=== PATIENT | female | born 2000 | race African-American/Black ===

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

== ENCOUNTER 2024-02-05 09:59 | Emergency (ER) | payer SELFPAY ==
[2024-02-05 10:14] VITALS: RESP 16
--- NOTE | 2024-02-05 10:14 | ED ---
Female Urogenital HPI - General Stated complaint: 18wks preg,abd pain Time Seen by Provider: 02/05/24 10:13 Source: patient, RN notes reviewed - History of Present Illness Initial comments: This is a 23-year-old female presenting to the emergency department chief complaint of lower abdominal pain and cramping in addition to vaginal bleeding that is been occurring over the past few days. Patient is approximately 18 weeks . Patient had outpatient ultrasound few weeks ago which revealed a intrauterine . She has been unable to establish and follow-up care with a OB for this . Patient states that vaginal bleeding is more spotting. Denies headaches, blurry or double vision, shortness of breath or difficulty breathing. Denies dysuria or increased urinary frequency or urgency. - Related Data Home Medications Medication Instructions Recorded Confirmed Dextroamphetamine/Amphetamine 20 mg PO DAILY 12/13/13 08/24/14 [Adderall] Previous Rx's Medication Instructions Recorded Cephalexin [Keflex] 500 mg PO Q12HR 10 Days #20 cap 12/30/19 Doxycycline [Vibramycin] 100 mg PO BID 14 Days #28 capsule 12/30/19 metroNIDAZOLE [Flagyl] 500 mg PO BID #28 tab 12/30/19 Nitrofurantoin Monohyd/M-Cryst 100 mg PO Q12HR #14 cap 02/05/24 [Macrobid] Allergies Allergy/AdvReac Type Severity Reaction Status Date / Time No Known Allergies Allergy Verified 02/05/24 10:14 Review of Systems ROS Statement: Those systems with pertinent positive or pertinent negative responses have been documented in the HPI. ROS Other: All systems not noted in ROS Statement are negative. Past Medical History Past Medical History: Asthma Additional Past Medical History / Comment(s): ADD, History of Any Multi-Drug Resistant Organisms: None Reported Past Surgical History: No Surgical Hx Reported Past Psychological History: ADD/ADHD Smoking Status: Never smoker Past Alcohol Use History: None Reported Past Drug Use History: None Reported General Exam General appearance: alert, in no apparent distress Eye exam: Present: normal appearance, PERRL, EOMI. Absent: scleral icterus, conjunctival injection, periorbital swelling Neck exam: Present: normal inspection. Absent: tenderness, meningismus, lymphadenopathy Respiratory exam: Present: normal lung sounds bilaterally. Absent: respiratory distress, wheezes, rales, rhonchi, stridor Cardiovascular Exam: Present: regular rate, normal rhythm, normal heart sounds. Absent: systolic murmur, diastolic murmur, rubs, gallop, clicks GI/Abdominal exam: Present: soft, tenderness (suprapubic), normal bowel sounds. Absent: distended, guarding, rebound, rigid Extremities exam: Present: normal inspection, full ROM, normal capillary refill. Absent: tenderness, pedal edema, joint swelling, calf tenderness Back exam: Present: normal inspection Skin exam: Present: warm, dry, intact, normal color. Absent: rash Course Vital Signs 02/05/24 02/05/24 10:12 13:12 Temperature 97.8 F 97.9 F Pulse Rate 94 90 Respiratory 16 16 Rate Blood Pressure 130/78 128/78 O2 Sat by Pulse 97 97 Oximetry Medical Decision Making - Medical Decision Making Was pt. sent in by a medical professional or institution (, PA, MENTAL TELEPATHIST, urgent care, hospital, or half-way...) When possible be specific @ -No Did you speak to anyone other than the patient for history (EMS, parent, family, police, friend...)? What history was obtained from this source @ -No Did you review nursing and triage notes (agree or disagree)? Why? @ -I reviewed and agree with nursing and triage notes Were old charts reviewed (outside hosp., previous admission, EMS record, old EKG, old radiological studies, urgent care reports/EKG's, half-way records)? Report findings @ -No old charts were reviewed Differential Diagnosis (chest pain, altered mental status, abdominal pain women, abdominal pain men, vaginal bleeding, weakness, fever, dyspnea, syncope, hea dache, dizziness, GI bleed, back pain, seizure, CVA, palpatations, mental health, musculoskeletal)? @ -Differential Vaginal Bleeding: Spontaneous , threatened , molar , ectopic , bloody show, incompetent cervix, abruptioplacenta, placenta previa, uterine rupture, dysfunctional uterine bleeding, hemorrhage, uterine fibroids, this is not meant to be an all-inclusive list. EKG interpreted by me (3pts min.). @ -none X-rays interpreted by me (1pt min.). @ -None done CT interpreted by me (1pt min.). @ -None done U/S interpreted by me (1pt. min.). @ -Ultrasound of the fetus reveals a single intrauterine gestation estimated 18 weeks 3 days with cardiac activity 145 What testing was considered but not performed or refused? (CT, X-rays, U/S, labs)? Why? @ -None What meds were considered but not given or refused? Why? @ -None Did you discuss the management of the patient with other professionals (professionals i.e. DrJay, PA, MENTAL TELEPATHIST, lab, RT, psych nurse, medical social worker, clinical biochemist, teacher, chief digital media officer, case investigator)? Give summary @ -No Was smoking cessation discussed for >3mins.? @ -No Was critical care preformed (if so, how long)? @ -No Were there social determinants of health that impacted care today? How? (Homelessness, low income, unemployed, alcoholism, drug addiction, transportation, low edu. Level, literacy, decrease access to med. care, half-way, rehab)? @ -No Was there de-escalation of care discussed even if they declined (Discuss DNR or withdrawal of care, Hospice)? DNR status @ -No What co-morbidities impacted this encounter? (DM, HTN, Smoking, COPD, CAD, Cancer, CVA, ARF, Chemo, Hep., AIDS, mental health diagnosis, sleep apnea, morbid obesity)? @ -None Was patient admitted / discharged? Hospital course, mention meds given and route, prescriptions, significant lab abnormalities, going to OR and other pertinent info. @ -Discharge. 23-year-old female with abdominal cramping during . On my evaluation the patient she is resting company no signs acute distress. Her vitals are stable. Showed to have mild suprapubic tenderness to palpation. Patient was offered pain medication however she is declined at this time. Unremarkable for intrauterine gestation 18 weeks 3 days cardiac to be 145 with a decreased ratio to her abdomen. Analysis remarkable for infection with large leukocyte esterase, 41 white blood cells and epithelial cells. Patient's hCG level 15,000. Blood type O+. Patient is informed of results from today's workup. She is provided prescription for Macrobid to take for during and instructed to follow-up with blacksmith helper/OB for further evaluation. Discus sed with Dr. Jeffrey Undiagnosed new problem with uncertain prognosis? @ -No Drug Therapy requiring intensive monitoring for toxicity (Heparin, Nitro, Insulin, Cardizem)? @ -No Were any procedures done? @ -No Diagnosis/symptom? @ -Abdominal pain during , vaginal bleeding during Acute, or Chronic, or Acute on Chronic? @ -Acute Uncomplicated (without systemic symptoms) or Complicated (systemic symptoms)? @ -Uncomplicated Side effects of treatment? @ -No Exacerbation, Progression, or Severe Exacerbation? @ -No Poses a threat to life or bodily function? How? (Chest pain, USA, ND, pneumonia, PE, COPD, DKA, ARF, appy, cholecystitis, CVA, Diverticulitis, Homicidal, Cee icidal, threat to staff... and all critical care pts) @ -No - Lab Data Result diagrams: 02/05/24 11:51 02/05/24 11:51 Lab Results 02/05/24 02/05/24 02/05/24 Range/Units 10:32 11:51 11:51 WBC 9.4 (3.8-10.6) k/uL RBC 4.33 (3.80-5.40) m/uL Hgb 11.4 (11.4-16.0) gm/dL Hct 35.4 (34.0-46.0) % MCV 81.7 (80.0-100.0) fL MCH 26.4 (25.0-35.0) pg MCHC 32.3 (31.0-37.0) g/dL RDW 16.1 H (11.5-15.5) % Plt Count 237 (150-450) k/uL MPV 8.1 Neutrophils % 80 % Lymphocytes % 14 % Monocytes % 4 % Eosinophils % 1 % Basophils % 0 % Neutrophils # 7.5 (1.3-7.7) k/uL Lymphocytes # 1.3 (1.0-4.8) k/uL Monocytes # 0.4 (0-1.0) k/uL Eosinophils # 0.1 (0-0.7) k/uL Basophils # 0.0 (0-0.2) k/uL Anisocytosis Slight Sodium 133 L (137-145) mmol/L Potassium 3.7 (3.5-5.1) mmol/L Chloride 107 (98-107) mmol/L Carbon Dioxide 20 L (22-30) mmol/L Anion Gap 6 mmol/L BUN 6 L (7-17) mg/dL Creatinine 0.39 L (0.52-1.04) mg/dL Est GFR (CKD-EPI)AfAm >90 (>60 ml/min/1.73 sqM) Est GFR (CKD-EPI)NonAf >90 (>60 ml/min/1.73 sqM) Glucose 95 (74-99) mg/dL Calcium 8.8 (8.4-10.2) mg/dL Magnesium 1.7 (1.6-2.3) mg/dL Total Bilirubin 0.3 (0.2-1.3) mg/dL AST 15 (14-36) U/L ALT 8 (4-34) U/L Alkaline Phosphatase 72 (38-126) U/L Total Protein 6.6 (6.3-8.2) g/dL Albumin 3.5 (3.5-5.0) g/dL HCG, Quant 13908.3 mIU/mL Urine Color Light Yellow Urine Appearance Cloudy H (Clear) Urine pH 7.0 (5.0-8.0) Ur Specific [place] 1.026 (1.001-1.035) Urine Protein Trace H (Negative) Urine Glucose (UA) Negative (Negative) Urine Ketones Negative (Negative) Urine Blood Negative (Negative) Urine Nitrite Negative (Negative) Urine Bilirubin Negative (Negative) Urine Urobilinogen <2.0 (<2.0) mg/dL Ur Leukocyte Esterase Large H (Negative) Urine RBC 2 (0-5) /hpf Urine WBC 41 H (0-5) /hpf Ur Squamous Epith Cells 15 H (0-4) /hpf Urine Mucus Many H (None) /hpf Blood Type Blood Type Recheck Bld Type Recheck Status 02/05/24 Range/Units 12:25 WBC (3.8-10.6) k/uL RBC (3.80-5.40) m/uL Hgb (11.4-16.0) gm/dL Hct (34.0-46.0) % MCV (80.0-100.0) fL MCH (25.0-35.0) pg MCHC (31.0-37.0) g/dL RDW (11.5-15.5) % Plt Count (150-450) k/uL MPV Neutrophils % % Lymphocytes % % Monocytes % % Eosinophils % % Basophils % % Neutrophils # (1.3-7.7) k/uL Lymphocytes # (1.0-4.8) k/uL Monocytes # (0-1.0) k/uL Eosinophils # (0-0.7) k/uL Basophils # (0-0.2) k/uL Anisocytosis Sodium (137-145) mmol/L Potassium (3.5-5.1) mmol/L Chloride (98-107) mmol/L Carbon Dioxide (22-30) mmol/L Anion Gap mmol/L BUN (7-17) mg/dL Creatinine (0.52-1.04) mg/dL Est GFR (CKD-EPI)AfAm (>60 ml/min/1.73 sqM) Est GFR (CKD-EPI)NonAf (>60 ml/min/1.73 sqM) Glucose (74-99) mg/dL Calcium (8.4-10.2) mg/dL Magnesium (1.6-2.3) mg/dL Total Bilirubin (0.2-1.3) mg/dL AST (14-36) U/L ALT (4-34) U/L Alkaline Phosphatase (38-126) U/L Total Protein (6.3-8.2) g/dL Albumin (3.5-5.0) g/dL HCG, Quant mIU/mL Urine Color Urine Appearance (Clear) Urine pH (5.0-8.0) Ur Specific [place] (1.001-1.035) Urine Protein (Negative) Urine Glucose (UA) (Negative) Urine Ketones (Negative) Urine Blood (Negative) Urine Nitrite (Negative) Urine Bilirubin (Negative) Urine Urobilinogen (<2.0) mg/dL Ur Leukocyte Esterase (Negative) Urine RBC (0-5) /hpf Urine WBC (0-5) /hpf Ur Squamous Epith Cells (0-4) /hpf Urine Mucus (None) /hpf Blood Type O Positive Blood Type Recheck No Previous Record Bld Type Recheck Status ABR ONLY Disposition Clinical Impression: Abdominal pain during , UTI (urinary tract infection) Disposition: HOME SELF-CARE Condition: Stable Instructions (If sedation given, give patient instructions): Abdominal Pain in (ED), Urinary Tract Infection in (ED) Additional Instructions: Please return to the Emergency Department if symptoms worsen or any other concerns. Complete full course of Macrobid as prescribed for urinary tract i nfection. Recommend that you follow-up with OB as scheduled. Prescriptions: Nitrofurantoin Monohyd/M-Cryst [Macrobid] 100 mg PO Q12HR #14 cap Is patient prescribed a controlled substance at d/c from ED?: No Referrals: None,Stated [Primary Care Provider] - 1-2 days Time of Disposition: 13:03
[2024-02-05 11:24] LABS: Appearance,Urine Cloudy (Clear); Bilirubin,Urine Negative (Negative); Blood,Urine Negative (Negative); Color,Urine Light Yellow; Glucose,Urine (UA) Negative (Negative); Ketones,Urine Negative (Negative); Leukocyte Esterase,Urine Large (Negative); Mucus,Urine Many /hpf; Nitrite,Urine Negative (Negative); Protein,Urine Trace (Negative); RBC,Urine 2 /hpf (0-5); Specific Gravity,Urine 1.026 (1.001-1.035); Squamous Epithelial Cell,Urine 15 /hpf (0-4); Urobilinogen,Urine <2.0 mg/dL (<2.0); WBC,Urine 41 /hpf (0-5)
--- NOTE | 2024-02-05 11:32 | US ---
EXAMINATION TYPE: US OB >= 14 wk fetus DATE OF EXAM: 02/05/2024 COMPARISON: None CLINICAL INDICATION: Female, 23 years old with history of ab pain, bleeding, 17 weeks; TECHNIQUE: FINDINGS: GESTATIONAL AGE / DATING Physician Established: Not yet established Dates by LMP: (17 weeks/4 days) EDC: 07/11/2024 Dates by First Scan: No previous Dates by Current Scan: (18 weeks/3 days) EDC: 07/05/2024 SURVEY IUP: Single PLACENTA: Posterior PREVIA: No Previa TONO: 11.3 cm Normal CERVICAL LENGTH (transabdominal: norm > 3.0cm): 3.6 cm BIOMETRY PRESENTATION: Vertex LIE: Longitudinal BPD: 4.0 cm 18 weeks / 2 days HC: 15.1 cm 18 weeks / 1 days AC: 14.1 cm 19 weeks / 3 days FL: 2.8 cm 18 weeks / 4 days ESTIMATED WEIGHT IN GRAMS: 264 grams ESTIMATED WEIGHT IN LBS/OZ: 0 lbs. 9 oz. WEIGHT PERCENTAGE BASED ON ESTABLISHED DATES: >97% HC/AC: 1.07 Abnormal FL/AC: 19.92 HEART RATE: 145 bpm RHYTHM: Normal IMPRESSION: 1. Single intrauterine gestation estimated at 18 weeks 3 days gestation based on current ultrasound m easurements. Cardiac activity measures 145 bpm. 2. Minimal diminished ratio for head circumference to abdominal circumference. [facility], , 02/05/2024 11:29 AM
[2024-02-05 12:14] LABS: Anisocytosis Slight; Basophils % (A) 0 %; Eosinophils # (A) 0.1 k/uL (0-0.7); Eosinophils % (A) 1 %; HCT 35.4 % (34.0-46.0); HGB 11.4 gm/dL (11.4-16.0); Lymphocytes # (A) 1.3 k/uL (1.0-4.8); Lymphocytes % (A) 14 %; MCH 26.4 pg (25.0-35.0); MCHC 32.3 g/dL (31.0-37.0); MCV 81.7 fL (80.0-100.0); Mean Platelet Volume 8.1; Monocytes # (A) 0.4 k/uL (0-1.0); Monocytes % (A) 4 %; Neutrophils # (A) 7.5 k/uL (1.3-7.7); Neutrophils % (A) 80 %; Platelet Count 237 k/uL (150-450); RBC 4.33 m/uL (3.80-5.40); RDW 16.1 % (11.5-15.5); WBC 9.4 k/uL (3.8-10.6)
[2024-02-05 12:29] LABS: ALT 8 U/L (4-34); AST 15 U/L (14-36); African American GFR (CKD) >90 (>60 ml/min/1.73 sqM); Albumin 3.5 g/dL (3.5-5.0); Alkaline Phosphatase 72 U/L (38-126); Anion Gap 6 mmol/L; Blood Urea Nitrogen 6 mg/dL (7-17); Calcium 8.8 mg/dL (8.4-10.2); Carbon Dioxide 20 mmol/L (22-30); Chloride 107 mmol/L (98-107); Glucose 95 mg/dL (74-99); Magnesium 1.7 mg/dL (1.6-2.3); Non-African American GFR(CKD) >90 (>60 ml/min/1.73 sqM); Potassium 3.7 mmol/L (3.5-5.1); Sodium 133 mmol/L (137-145); Total Bilirubin 0.3 mg/dL (0.2-1.3); Total Protein 6.6 g/dL (6.3-8.2)
[2024-02-05 13:07] LABS: HCG,Quantitative Serum 15067.3 mIU/mL
[2024-02-05 13:14] VITALS: BP 128/78; PULSE 90; TEMP 97.9
== END 2024-02-05 13:12 | disposition home or self-care (01) ==
LOC: EC 09:59
DX: O23.42 Unspecified infection of urinary tract in pregnancy, second trimester (principal); N39.0 Urinary tract infection, site not specified; Z3A.18 18 weeks gestation of pregnancy
CPT/HCPCS: 36415; 76805; 80053; 81001; 83735; 84702; 85025; 86900; 86901; 87086; 99284

== ENCOUNTER 2024-06-09 01:55 | Outpatient (CLI) | payer OTHER ==
[2024-06-09 03:04] VITALS: BP 114/75; RESP 18; TEMP 96.7
--- NOTE | 2024-07-07 20:32 | P.MSEPDOC ---
Presenting Problems - Arrival Data Date of Arrival on Unit: 06/09/24 Time of Arrival on Unit: 01:55 Mode of Transport: Wheelchair - Complaint OB-Reason for Admission/Chief Complaint: Rule Out SROM Comment: Pt presents to triage with c/o leaking fluid at 1999 and pressure "in her uterus" and back. PT denies cx. Pt not currently wearing a pad Medical History - Information : 2 Para: 1 Term: 1 : 0 Abortions: Spontaneous or Elective: 0 Number of Living Children: 1 - Gestational Age Gestational Age by RAJINDER (wks/days): 36 Weeks and 0 Days Review of Systems - Review of Systems Constitutional: No problems Breast: No problems ENT: No problems Cardiovascular: No problems Respiratory: No problems Gastrointestinal: No problems Genitourinary: No problems Musculoskeletal: No problems Neurological: No problems Skin: No problems Vital Signs - Temperature Temperature: 96.7 F Temperature Source: Temporal Artery Scan - Respirations Respiratory Rate: 18 Oxygen Delivery Method: Room Air O2 Sat by Pulse Oximetry: 97 - Blood Pressure Right Arm Blood Pressure: 114/75 Blood Pressure Mean: 88 Blood Pressure Source: Automatic Cuff Medical Screen Scoring - Cervical Exam Dilation (cm): 0.5 Effacement (%): 60 Membranes: Intact - Assessment - Baby A Baseline FHR: 145 Heart Rate - NICHD Category: Category I (Normal) NST: Reactive Physician Notification - Physician Notified Physician Notified Date: 06/09/24 Physician Notified Time: 02:45 Physician: Yudith Mahoney New Order Received: Yes - Notification Comment Comment: Spoke with Dr. Mahoney, Pt of Dr. hallman 36 weels 0 days. Presents with c/o leaking fluid and pressure at 1999. Pt denies cxs. Amnisure negative,no cxs, fingertip, but had to be checked three times to reach cervix and is now having irritability pattern but isnt feeling anything. Reactive NST with cat 1 tones. Order to d/c home Maternal Triage Index - Maternal Triage Index Presenting for scheduled procedure w/no complaint: No - Stat/Priority 1 Stat Priority 1: No - Urgent/Priority 2 Urgent Priority 2: No - Prompt/Priority 3 Prompt Priority 3: Yes Criteria Met for Priority 3: Pt presents to triage with c/o leaking fluid at 1999 and pressure "in her uterus" and back. PT denies cx. Pt not currently wearing a pad Disposition - Disposition OB Disposition: Discharge to home I agree with the RN Medical Screening Exam: Yes Case reviewed; plan agreed upon as documented in EMR&OBIX.: Yes Diagnosis: FALSE LABOR BEFORE 37 COMPLETED WEEKS OF GEST, THIRD TRI
== END 2024-06-09 02:52 | disposition home or self-care (01) ==
LOC: FBPOP 01:55
PROVIDERS: ATTEND Obstetrics & Gynecology Obstetrics
DX: O47.03 False labor before 37 completed weeks of gestation, third trimester (principal); Z3A.36 36 weeks gestation of pregnancy
CPT/HCPCS: 59025; 84112; G0463; 99213

== ENCOUNTER 2024-06-26 12:10 | Inpatient (IN) | payer OTHER ==
--- NOTE | 2024-06-26 12:33 | P.HPOB ---
History of Present Illness H&P Date: 06/26/24 Chief Complaint: 38-3/7 weeks, labor The patient is a 23-year-old 2 para 0-1-0-1 admitted to labor and delivery at 38-3/7 weeks as established by last menstrual period and confirmed by second trimester ultrasound. She is admitted in early active labor with all signs reassuring, category 1 heart rate tracing. Her has been uncomplicated though she carries a history of a previous delivery without complications. Group B strep status is negative. Obstetrical history: 2 para 0-1-0-1 with 1 vaginal delivery without complications. Current statistics are listed in history of present illness. EDC of 07/07/2024 was established by last menstrual period and confirmed by second trimester ultrasound. Laboratory workup demonstrates a blood type of O+ with a negative antibody screen. Rubella status is immune. The remainder of the laboratory workup was within normal limits. 1 hour Glucola was normal and group B strep status is negative. Gynecologic history: Unremarkable with no history of any infections to include STDs. Review of Systems Review of systems is confined to history of present list. Past Medical History Past Medical History: Asthma Additional Past Medical History / Comment(s): ADD, History of Any Multi-Drug Resistant Organisms: None Reported Past Surgical History: No Surgical Hx Reported Smoking Status: Never smoker Medications and Allergies Allergies Allergy/AdvReac Type Severity Reaction Status Date / Time No Known Allergies Allergy Verified 06/09/24 02:38 Exam In general, this is a well-developed, well-nourished woman in some discomfort as she is in early labor. Her heart has a regular rhythm and rate without murmur. Her lungs are clear to auscultation bilaterally in all deluca. Her abdomen is gravid, nondistended, has normal active bowel sounds, soft, nontender, and without any palpable masses aside from the uterine fundus. Her extremities are without any cyanosis, clubbing, or significant edema and are nontender to palpation bilaterally. Digital cervical examination demonstrates this patient cervix to be 5 cm dilated, 70% effaced, with the vertex and presentation at -1 station. Membranes are intact. Assessment and Plan (1) Active labor at term Current Visit: Yes Status: Acute Code(s): EOS2627 - SNOMED Code(s): 45409952 Plan: The patient is admitted for active management of labor. She will have close maternal and surveillance and expectant management will be practiced. She is a good candidate for either IV or epidural analgesia, which ever she may choose. She has requested epidural analgesia.
[2024-06-26] MEDS ORDERED: miSOPROStoL 200 MCG TAB PO PRN (12:47)
[2024-06-26] MEDS ORDERED: OXYTOCIN 10 UNIT/ML 1 ML VIAL IM PRN (12:47)
[2024-06-26] MEDS ORDERED: miSOPROStoL 200 MCG TAB RECTAL PRN (12:47)
[2024-06-26] MEDS ORDERED: METHYLERGONOVINE 0.2 MG/ML 1 ML AMP IM PRN (12:47)
[2024-06-26] MEDS ORDERED: LIDOCAINE 0.5% (PF) 5 MG/ML (50 ML SDV) SQ PRN (12:47)
[2024-06-26] MEDS ORDERED: TERBUTALINE 1 MG/ML VIAL SQ PRN (12:47)
[2024-06-26] MEDS ORDERED: CARBOPROST TROMETHAMINE 250 MCG/ML 1 ML AMP IM PRN (12:47)
[2024-06-26] MEDS ORDERED: TRANEXAMIC 1,000 MG/100ML-NACL 1,000 MG in EMPTY BAG 1 BAG IV PRN (12:47)
[2024-06-26] MEDS: LACTATED RINGERS 500 ML IV SCH (12:58)
[2024-06-26 13:06] LABS: Anisocytosis Slight; Basophils % (A) 0 %; Eosinophils # (A) 0.2 k/uL (0-0.7); Eosinophils % (A) 3 %; HCT 31.5 % (34.0-46.0); HGB 9.8 gm/dL (11.4-16.0); Hypochromasia Marked; Lymphocytes # (A) 2.3 k/uL (1.0-4.8); Lymphocytes % (A) 24 %; MCH 22.6 pg (25.0-35.0); MCHC 30.9 g/dL (31.0-37.0); MCV 73.1 fL (80.0-100.0); Mean Platelet Volume 8.6; Microcytosis Moderate; Monocytes # (A) 0.5 k/uL (0-1.0); Monocytes % (A) 5 %; Neutrophils # (A) 6.2 k/uL (1.3-7.7); Neutrophils % (A) 66 %; Platelet Count 241 k/uL (150-450); Poikilocytosis Slight; RBC 4.31 m/uL (3.80-5.40); RDW 16.4 % (11.5-15.5); WBC 9.5 k/uL (3.8-10.6)
[2024-06-26] MEDS ORDERED: SODIUM CHLORIDE 0.9% 250 ML BAG ONE (13:21)
[2024-06-26] MEDS ORDERED: ROPIVACAINE 5 MG/ML 30 ML VIAL ONE (13:21)
[2024-06-26] MEDS ORDERED: fentaNYL (PF) 50 MCG/ML 5 ML AMP ONE (13:21)
[2024-06-26] MEDS: ROPIVACAINE 225 MG, fentaNYL (PF). 450 MCG in SODIUM CHLORIDE 0.9% 171 ML EPIDURAL ONE (16:23)
[2024-06-26] MEDS: OXYTOCIN 30 UNITS/500 ML NS 30 UNIT in SALINE 1 500ML.BAG IV SCH (18:59)
--- NOTE | 2024-06-27 00:04 | P.PROBDLV ---
Vaginal Delivery Note - . Vaginal Delivery Note: Date of delivery/service: 06/26/2024 The patient is a 23-year-old 2 para 0-1-0-1 admitted at 38-3/7 weeks as established by good dating parameters. She is admitted in early active labor with all signs reassuring, category 1 heart rate tracing. Her has been uncomplicated and group B strep status is negative. On labor and delivery, she had an epidural catheter placed for analgesia and made relatively slow progress in the early part of the active phase. She underwent artificial rupture of membranes and continued to make slow progress. She had Pitocin augmentation started and then made steady progress ultimately to complete and pushed over the course of approximately 1 hour and 15 minutes to a normal spontaneous vaginal delivery of a viable 7 pound 9.5 ounce baby boy with Apgars of 8 at 1 minute and 9 at 5 minutes delivered in the right occiput anterior position. There was a nuchal cord x 1 which was reduced following delivery of the infant. The placenta was delivered spontaneously, intact, and grossly normal with a grossly normal, centrally inserted and velamentously inserted three-vessel cord. There were no significant lacerations of the perineum, vagina, or cervix. Estimated blood loss for the case was approximately 250 mL. There were no complications. All sponge, instrument, and needle counts were correct. Both mother and are resting comfortably in recovery.
[2024-06-27] MEDS ORDERED: diphenhydrAMINE 25 MG CAP PO PRN (03:11)
[2024-06-27] MEDS ORDERED: BENZOCAINE/MENTHOL SPRAY 1 GM/SPRAY AEROSOL TOPICAL PRN (03:11)
[2024-06-27] MEDS ORDERED: ZOLPIDEM 5 MG TAB PO PRN (03:11)
[2024-06-27] MEDS ORDERED: HYDROCORTISONE 2.5% RECTAL CREAM 30 GM TUBE RECTAL PRN (03:11)
[2024-06-27] MEDS ORDERED: diphenhydrAMINE 50 MG/ML 1 ML VIAL IVP PRN ×2 (03:11)
[2024-06-27] MEDS ORDERED: SIMETHICONE 80 MG CHEWABLE PO PRN (03:11)
[2024-06-27] MEDS ORDERED: diphenhydrAMINE 50 MG CAP PO PRN (03:11)
[2024-06-27] MEDS ORDERED: LANOLIN CREAM 1 GM TUBE TOPICAL PRN (03:11)
[2024-06-27] MEDS: IBUPROFEN 800 MG TAB PO PRN (03:23)
[2024-06-27] MEDS: ACETAMINOPHEN TAB 500 MG TAB PO PRN (06:46)
[2024-06-27] MEDS: SENNOSIDES-DOCUSATE SODIUM 1 EACH TAB PO SCH (09:10)
--- NOTE | 2024-06-27 09:37 | P.PNOBGVD ---
Subjective - Subjective Principal diagnosis: Status postnormal vaginal delivery day #1 Interval history: Seen and examined seeing her baby in the nursery. Her baby does have a pneumothorax. Patient denies nausea, vomiting, chest pain, shortness of breath or calf pain. Patient reports: Reports appetite normal, Reports voiding normally, Reports pain well controlled, Reports ambulating normally Objective - Latest Vital Signs Latest vital signs: Vital Signs Temp Pulse Resp BP Pulse Ox 06/27/24 08:52 99.2 F 90 15 119/77 98 06/27/24 04:03 97.1 F L 94 16 132/81 06/27/24 02:03 97.4 F L 129 H 16 139/86 06/27/24 01:48 128 H 16 145/88 06/27/24 01:28 123 H 16 137/81 06/27/24 01:18 121 H 16 128/70 06/27/24 01:03 112 H 16 133/65 06/27/24 00:48 122 H 16 142/73 06/27/24 00:33 121 H 16 129/69 06/27/24 00:18 120 H 16 126/63 06/27/24 00:03 127 H 16 125/60 06/26/24 12:59 97.2 F L 91 14 142/87 06/26/24 12:53 97.2 F L 91 14 142/87 Intake and Output 06/26/24 06/27/24 06/27/24 22:59 06:59 14:59 Output Total 314 Balance -314 Output: Output, Quantitative 314 Blood Loss Other: # Voids 1 - Exam Lungs: bilateral: normal Chest: Normal S1, Normal S2 Extremities: Present: normal Abdomen: Present: normal appearance, soft Uterus: Present: normal, firm - Labs Labs: Abnormal Lab Results - Last 24 Hours (Table) 06/26/24 Range/Units 12:55 Hgb 9.8 L (11.4-16.0) gm/dL Hct 31.5 L (34.0-46.0) % MCV 73.1 L (80.0-100.0) fL MCH 22.6 L (25.0-35.0) pg MCHC 30.9 L (31.0-37.0) g/dL RDW 16.4 H (11.5-15.5) % Assessment and Plan (1) Normal spontaneous vaginal delivery Current Visit: Yes Status: Acute Code(s): O80 - ENCOUNTER FOR FULL-TERM UNCOMPLICATED DELIVERY SNOMED Code(s): 57669367 Plan: 1. cont pp care
[2024-06-28 07:31] VITALS: TEMP 97.8
--- NOTE | 2024-06-28 07:39 | P.DS ---
Providers Date of admission: 06/26/24 12:30 Expected date of discharge: 06/28/24 Attending physician: Henna Ewing Primary care physician: Henna Ewing - Discharge Diagnosis(es) (1) Normal spontaneous vaginal delivery Current Visit: Yes Status: Acute Hospital Course: Patient presented in active labor. She underwent a normal vaginal delivery. Her course has been uneventful. She denies nausea, vomiting, chest pain, shortness of breath or calf pain. Baby is in the nursery for a pneumothorax. Patient will be discharged home day #2 in stable condition to follow- up with me in 6 weeks. Plan - Discharge Summary New Discharge Prescriptions: New Ibuprofen [Motrin] 800 mg PO Q8H PRN #30 tab PRN Reason: Pain Discharge Medication List Ibuprofen [Motrin] 800 mg PO Q8H PRN #30 tab 06/28/24 [Rx] Follow up Appointment(s)/Referral(s): Felix Bermudez MD [STAFF PHYSICIAN] - 1 Week Henna Ewing DO [Primary Care Provider] - 6 Weeks Discharge Disposition: HOME SELF-CARE
[2024-06-28 16:55] VITALS: PULSE 78; RESP 16
[2024-06-28 16:56] VITALS: BP 142/92
== END 2024-06-28 17:25 | disposition home or self-care (01) | DRG 560 ==
LOC: FBPOP 12:10 → 4FBP 12:30
PROVIDERS: ADMIT Obstetrics & Gynecology; ATTEND Obstetrics & Gynecology
PROC: 10E0XZZ Delivery of Products of Conception, External Approach (ICD-10-PCS; principal; 2024-06-27)
PROC: 10907ZC Drainage of Amniotic Fluid, Therapeutic from Products of Conception, Via Natural or Artificial Opening (ICD-10-PCS; 2024-06-27)
PROC: 3E033VJ Introduction of Other Hormone into Peripheral Vein, Percutaneous Approach (ICD-10-PCS; 2024-06-27)
DX: O69.81X0 Labor and delivery complicated by cord around neck, without compression, not applicable or unspecified (principal); J45.909 Unspecified asthma, uncomplicated; O99.52 Diseases of the respiratory system complicating childbirth; Z37.0 Single live birth; Z3A.38 38 weeks gestation of pregnancy; F90.9 Attention-deficit hyperactivity disorder, unspecified type; O99.344 Other mental disorders complicating childbirth
CPT/HCPCS: 59025; 85025; 86850; 86900; 86901; 99213